=== PATIENT | male | born 1965 | race Caucasian/White ===

== ENCOUNTER 2018-04-03 16:40 | Emergency (ER) | payer OTHER ==
[2018-04-03 18:00] LABS: Bilirubin Negative (Negative); Blood, Urine Negative (Negative); Clarity Cloudy (Clear); Glucose, Urine (Dipstick) Negative (Negative); Leukocyte Trace (Negative); Nitrite Negative (Negative); Protein, Urine (Dipstick) 30 mg/dL (Neg-Trace); Urobilinogen 0.2 mg/dL (0.2-1.0)
[2018-04-03 18:01] LABS: #Eosinphils 0.1 thou/uL (0.0-0.7); #Lymphocytes 0.8 thou/uL (1.20-3.40); #Monocytes 0.9 thou/uL (0.11-0.59); #Neutrophils 11.5 thou/uL (1.40-6.50); %Basophils 0.4 % (0.0-1.0); %Eosinophils 0.4 % (0.0-10.0); %Lymphocytes 5.7 % (21.0-51.0); %Monocytes 6.6 % (0.0-10.0); %Neutrophils 86.9 % (42.0-75.0); Hemoglobin 14.7 g/dL (14.0-18.0); Mean Corpuscular HGB CONC 33.2 g/dL (32.0-36.0); Mean Corpuscular Hemoglobin 28.7 pg (27.0-31.0); Mean Corpuscular Volume 86.2 fL (78.0-98.0); Mean Platelet Volume 7.7 fL (7.4-10.4); Platelet Count 175 thou/uL (130-400); RBC Distribution Width 11.2 % (11.5-14.5); Red Blood Cell (RBC) Count 5.14 mill/uL (4.70-6.10); White Blood Cell (WBC) Count 13.2 thou/uL (4.8-10.8)
[2018-04-03 18:03] LABS: Bacteria/HPF 1+ HPF (None Seen); Oval Fat Bodies/HPF 1+ HPF (None Seen); RBC/HPF 0-3 HPF (0-3); Squamous Epithelial 0-3 HPF (0-3)
[2018-04-03 18:16] LABS: ALT (SGPT) 21 U/L (8-55); AST (SGOT) 18 U/L (5-34); Albumin 3.8 g/dL (3.5-5.0); Alkaline Phosphatase 64 U/L (40-150); Anion Gap 13 mmol/L (10-20); BUN (Urea Nitrogen) 16 mg/dL (8.4-25.7); Bilirubin, Total 0.7 mg/dL (0.2-1.2); Calc. Creatinine Clearance 0 mL/min (70-130); Calcium 8.9 mg/dL (7.8-10.44); Carbon Dioxide 24 mmol/L (22-29); Chloride 101 mmol/L (98-107); Estimated GFR-MDRD 66; Globulin 3.3 g/dL (2.4-3.5); Glucose 114 mg/dL (70-105); Lipase 23 U/L (8-78); Protein, Total 7.1 g/dL (6.0-8.3); Sodium 134 mmol/L (136-145)
--- NOTE | 2018-04-03 19:54 | CT ---
NONCONTRAST ENHANCED CT IMAGES ABDOMEN AND PELVIS: 04/03/18 HISTORY: 52-year-old with back pain. Noncontrast enhanced CT images of the abdomen and pelvis demonstrates some areas of atelectasis in th e lung bases. No evidence of free intraperitoneal air seen. The liver contains some small hypodense areas possibly representing hepatic cysts, although metastati c disease cannot be completely excluded. Correlate with pre and postcontrast enhanced MRI images of t he liver if indicated. The spleen is unremarkable. The gallbladder is partially contracted. The pancreas is unremarkable. Adrenal glands unremarkable. No evidence of renal calculi seen. No evidence of hydroureteronephrosis seen. No dilated loops of small bowel seen. A normal appendix is seen. A large amount of stool is seen in t he proximal colon. The prostate gland is enlarged. There does appear to be some distal esophageal thickening, possibly representing esophagitis. No defi nite evidence of osseous abnormality seen. There is vacuum disc changes at L3-4 and L5-S1 interverteb ral disc spaces. IMPRESSION: 1. Enlarged prostate gland. 2. Hypodense areas seen in the liver, possibly representing hepatic cysts versus metastatic lesi ons less likely. POS: NACHO
== END 2018-04-03 19:15 | disposition home or self-care (01) ==
LOC: SCSER 16:40
DX: N41.3 Prostatocystitis (principal); M54.5 Low back pain; M25.511 Pain in right shoulder; G89.29 Other chronic pain
CPT/HCPCS: 74176; 80053; 81003; 81015; 83605; 83690; 85025; 87086; 96360; 96361

== ENCOUNTER 2021-03-26 12:15 | Outpatient (CLI) | payer OTHER | END 2021-03-26 12:16 | disposition home or self-care (01) | LOC: BICMRI 12:15 | PROVIDERS: ATTEND Chiropractor | DX: M48.061 Spinal stenosis, lumbar region without neurogenic claudication (principal); M17.11 Unilateral primary osteoarthritis, right knee; S83.241A Other tear of medial meniscus, current injury, right knee, initial encounter; M94.8X6 Other specified disorders of cartilage, lower leg; M51.36 Other intervertebral disc degeneration, lumbar region; M47.816 Spondylosis without myelopathy or radiculopathy, lumbar region; M47.817 Spondylosis without myelopathy or radiculopathy, lumbosacral region | CPT/HCPCS: 70210; 72148 ==